=== PATIENT | female | born 1930 | race American Indian/Alaskan Native ===

== ENCOUNTER 2017-03-09 04:54 | Inpatient (IN) | payer MEDICARE ==
[2017-03-09 07:24] LABS: Calcium 8.8 mg/dL (8.4-10.2)
[2017-03-09 07:27] LABS: Basophils % (Auto) 0.5 % (0.0-1.8); Eosinophils # (Auto) 0.1 K/mm3 (0.0-0.4); Eosinophils % (Auto) 1.3 % (0.0-4.3); Hematocrit 42.3 % (30.3-42.9); Hemoglobin 13.7 gm/dl (10.1-14.3); Lymphocytes # (Auto) 1.2 K/mm3 (1.2-5.4); Lymphocytes % (Auto) 20.9 % (13.4-35.0); Mean Corpuscular HGB Conc 33 % (30-34); Mean Corpuscular Hemoglobin 30 pg (28-32); Mean Corpuscular Volume 93 fl (79-97); Monocytes # (Auto) 0.5 K/mm3 (0.0-0.8); Monocytes % (Auto) 8.7 % (0.0-7.3); Platelet Count 153 K/mm3 (140-440); Red Blood Count 4.53 M/mm3 (3.65-5.03); Red Cell Distribution Width 17.3 % (13.2-15.2)
--- NOTE | 2017-03-09 08:19 | Emergency Department Report ---
ED General Adult HPI - General Chief complaint: Hypoglycemia Stated complaint: LOW BLOOD SUGAR Time Seen by Provider: 03/09/17 08:18 Source: family, EMS Mode of arrival: Stretcher Limitations: Physical Limitation - History of Present Illness Initial comments: The patient was found to be hypoglycemic. She just moved here from [place]. She has noticed 2 days of dialysis. She was pending transfer to Dr. Hinojosa/Sharad drake but her outpatient transfer did not expedite. She presents here requesting dialysis. Apparently she is on glyburide only for her diabetes. Patient and family denies any recent fever or chills. She is otherwise asymptomatic except for exertional dyspnea -: days(s) Severity scale (0 -10): 0 Associated Symptoms: shortness of breath Treatments Prior to Arrival: none - Related Data Home Medications Medication Instructions Recorded Confirmed Last Taken Calcium Acetate 667 mg PO TID 03/09/17 03/09/17 03/09/17 Cinacalcet [Sensipar] 30 mg PO QDAY 03/09/17 03/09/17 03/08/17 Clopidogrel [Plavix] 75 mg PO QDAY 03/09/17 03/09/17 03/08/17 Donepezil [Aricept] 5 mg PO QDAY 03/09/17 03/09/17 03/08/17 Ergocalciferol [Vitamin D2] 1 cap PO QWEEK 03/09/17 03/09/17 Unknown Furosemide [Lasix TAB] 40 mg PO QDAY 03/09/17 03/09/17 03/08/17 Glimepiride [Amaryl] 1 mg PO QAM 03/09/17 03/09/17 03/08/17 Labetalol [Normodyne] 200 mg PO BID 03/09/17 03/09/17 03/08/17 Lisinopril [Zestril TAB] 40 mg PO BID 03/09/17 03/09/17 03/08/17 Megestrol [Megace] 80 mg PO BID 03/09/17 03/09/17 03/08/17 Minoxidil [Loniten] 10 mg PO QDAY 03/09/17 03/09/17 03/08/17 NIFEdipine XL [Procardia Xl] 60 mg PO Q12HR 03/09/17 03/09/17 03/08/17 Simvastatin [Zocor TAB] 40 mg PO QHS 03/09/17 03/09/17 03/08/17 Vit B Comp No.3/Folic/C/Biotin 1 each PO DAILY 03/09/17 03/09/17 03/08/17 [Tia-Indigo Rx Tablet] cloNIDine [Catapres] 0.2 mg PO TID 03/09/17 03/09/17 1 Day Ago ~03/08/17 hydrALAZINE [Apresoline] 25 mg PO Q8HR 03/09/17 03/09/17 03/08/17 Allergies Allergy/AdvReac Type Severity Reaction Status Date / Time No Known Allergies Allergy Unverified 03/09/17 05:47 ED Review of Systems ROS: Stated complaint: LOW BLOOD SUGAR Other details as noted in HPI Constitutional: denies: chills, fever Eyes: denies: eye pain, eye discharge, vision change ENT: denies: ear pain, throat pain Respiratory: shortness of breath. denies: cough, wheezing Cardiovascular: denies: chest pain, palpitations Endocrine: no symptoms reported Gastrointestinal: denies: abdominal pain, nausea, diarrhea Genitourinary: denies: urgency, dysuria, discharge Musculoskeletal: denies: back pain, joint swelling, arthralgia Skin: denies: rash, lesions Neurological: denies: headache, weakness, paresthesias Psychiatric: denies: anxiety, depression Hematological/Lymphatic: denies: easy bleeding, easy bruising ED Past Medical Hx - Past Medical History Previous Medical History?: Yes Hx Hypertension: Yes Hx Diabetes: Yes Hx Renal Disease: Yes (dialysis M, W, F) - Social History Smoking Status: Never Smoker Substance Use Type: None - Medications Home Medications: Home Medications Medication Instructions Recorded Confirmed Last Taken Type Calcium Acetate 667 mg PO TID 03/09/17 03/09/17 03/09/17 History Cinacalcet [Sensipar] 30 mg PO QDAY 03/09/17 03/09/17 03/08/17 History Clopidogrel [Plavix] 75 mg PO QDAY 03/09/17 03/09/17 03/08/17 History Donepezil [Aricept] 5 mg PO QDAY 03/09/17 03/09/17 03/08/17 History Ergocalciferol [Vitamin D2] 1 cap PO QWEEK 03/09/17 03/09/17 Unknown History Furosemide [Lasix TAB] 40 mg PO QDAY 03/09/17 03/09/17 03/08/17 History Glimepiride [Amaryl] 1 mg PO QAM 03/09/17 03/09/17 03/08/17 History Labetalol [Normodyne] 200 mg PO BID 03/09/17 03/09/17 03/08/17 History Lisinopril [Zestril TAB] 40 mg PO BID 03/09/17 03/09/17 03/08/17 History Megestrol [Megace] 80 mg PO BID 03/09/17 03/09/17 03/08/17 History Minoxidil [Loniten] 10 mg PO QDAY 03/09/17 03/09/17 03/08/17 History NIFEdipine XL [Procardia Xl] 60 mg PO Q12HR 03/09/17 03/09/17 03/08/17 History Simvastatin [Zocor TAB] 40 mg PO QHS 03/09/17 03/09/17 03/08/17 History Vit B Comp No.3/Folic/C/Biotin 1 each PO DAILY 03/09/17 03/09/17 03/08/17 History [Tia-Indigo Rx Tablet] cloNIDine [Catapres] 0.2 mg PO TID 03/09/17 03/09/17 1 Day Ago History ~03/08/17 hydrALAZINE [Apresoline] 25 mg PO Q8HR 03/09/17 03/09/17 03/08/17 History ED Physical Exam - General Limitations: Physical Limitation General appearance: alert, in no apparent distress - Head Head exam: Present: atraumatic, normocephalic - Eye Eye exam: Present: normal appearance. Absent: scleral icterus - ENT ENT exam: Present: mucous membranes moist - Neck Neck exam: Present: normal inspection - Respiratory Respiratory exam: Present: normal lung sounds bilaterally. Absent: respiratory distress - Cardiovascular Cardiovascular Exam: Present: regular rate, normal rhythm. Absent: systolic murmur, diastolic murmur, rubs, gallop - GI/Abdominal GI/Abdominal exam: Present: soft, normal bowel sounds. Absent: distended, tenderness, guarding, rebound - Extremities Exam Extremities exam: Present: normal inspection - Back Exam Back exam: Present: normal inspection - Neurological Exam Neurological exam: Present: alert, oriented X3, other (no acute focal deficit) - Psychiatric Psychiatric exam: Present: normal affect, normal mood, flat affect - Skin Skin exam: Present: warm, dry, intact, normal color. Absent: rash ED Course Vital Signs 03/09/17 05:34 Temperature 97.5 F L Pulse Rate 51 L Respiratory 14 Rate Blood Pressure 172/52 Blood Pressure 172/52 [Right] O2 Sat by Pulse 98 Oximetry ED Medical Decision Making - Lab Data Result diagrams: 03/09/17 05:40 03/09/17 05:40 Laboratory Results - last 24 hr 03/09/17 03/09/17 03/09/17 05:40 05:40 06:06 WBC 5.7 RBC 4.53 Hgb 13.7 Hct 42.3 MCV 93 MCH 30 MCHC 33 RDW 17.3 H Plt Count 153 Lymph % (Auto) 20.9 Andrew % (Auto) 8.7 H Eos % (Auto) 1.3 Baso % (Auto) 0.5 Lymph # 1.2 Andrew # 0.5 Eos # 0.1 Baso # 0.0 Seg Neutrophils % 68.6 Seg Neutrophils # 3.9 Sodium 136 L Potassium 4.6 Chloride 91.6 L Carbon Dioxide 24 Anion Gap 25 BUN 90 H Creatinine 7.2 H Estimated GFR 7 BUN/Creatinine Ratio 13 Glucose 127 H POC Glucose 120 H Calcium 8.8 Critical care attestation.: If time is entered above; I have spent that time in minutes in the direct care of this critically ill patient, excluding procedure time. ED Disposition Clinical Impression: End-stage renal disease needing dialysis Hypertension Qualifiers: Hypertension type: unspecified Qualified Code(s): I10 - Essential (primary) hypertension Disposition: OP ADMIT IP TO THIS HOSP Is pt being admited?: Yes Does the pt Need Aspirin: Yes Condition: Stable Time of Disposition: 12:48
--- NOTE | 2017-03-09 09:29 | XRay Report ---
AP CHEST: HISTORY: Difficulty in breathing AP view of the chest demonstrates a normal mediastinal and cardiac contour with clear lungs and normal bony and soft tissue structures. IMPRESSION: Unremarkable AP chest.
[2017-03-09] MEDS ORDERED: TYLENOL PO PRN (10:27)
[2017-03-09] MEDS ORDERED: DULCOLAX PR PRN (10:27)
[2017-03-09] MEDS ORDERED: APRESOLINE IV PRN (11:36)
[2017-03-09 11:37] LABS: Bacteria,Urine 3+ /HPF (Negative); Bilirubin,Urine NEG (Negative); Blood,Urine NEG (Negative); Color,Urine Yellow (Yellow); Mucus,Urine FEW /HPF; Nitrite,Urine NEG (Negative); Urobilinogen,Urine < 2.0 mg/dL (<2.0)
[2017-03-09] MEDS ORDERED: D50W (25GM) Syringe IV PRN (11:37)
[2017-03-09] MEDS: APRESOLINE PO SCH (13:34)
[2017-03-09] MEDS: CATAPRES PO SCH (13:35)
[2017-03-09] MEDS: LASIX PO SCH ×2 (13:35→17:11)
[2017-03-09] MEDS ORDERED: CATAPRES ONE (13:44)
[2017-03-09] MEDS ORDERED: APRESOLINE ONE ×2 (13:44→13:47)
[2017-03-09] MEDS ORDERED: LASIX ONE (13:45)
[2017-03-09] MEDS ORDERED: NACL 0.9% 100 ML IV PRN (14:07)
--- NOTE | 2017-03-09 15:06 | History and Physical Report ---
History of Present Illness Date of admission: 03/09/17 10:27 Chief complaint: I have missed dialysis History of present illness: History was mostly significant from her granddaughter. The patient was competent enough to give history also. She is a 86-year-old woman with past medical history of hypertension, end-stage renal disease on hemodialysis, diabetes on oral medications who presents because she could not get into dialysis. She has previously residing in [place], she was living with her son. Her son has his own medical problems and is also on dialysis. He was unable to take care of her. Adults protective services was called and then the decision was made for her to relocate to [place] to live with her granddaughter who will now be taking care of her. She has missed 2 dialysis sessions, because she has not been able to set up outpatient dialysis in this state. She denies chest pain she denies shortness of breath. She does have some pain in her sacrum. Her granddaughter states that she ambulates with a walker but for the most part she likes to lay in bed she gets up from 1 couch to get to the other couch . There are no changes in her mental status., No fever no chills. Also c/o low glucose, uses glimepiride, not on any insulin at home Past History Past Medical History: diabetes, dialysis, ESRD, hypertension Past Surgical History: Other (av graft) Social history: lives with family. denies: smoking, alcohol abuse, prescription drug abuse, IV drug use Family history: diabetes, hypertension, other (esrd) Medications and Allergies Allergies Allergy/AdvReac Type Severity Reaction Status Date / Time No Known Allergies Allergy Unverified 03/09/17 05:47 Home Medications Medication Instructions Recorded Confirmed Last Taken Type Calcium Acetate 667 mg PO TID 03/09/17 03/09/17 03/09/17 History Cinacalcet [Sensipar] 30 mg PO QDAY 03/09/17 03/09/17 03/08/17 History Clopidogrel [Plavix] 75 mg PO QDAY 03/09/17 03/09/17 03/08/17 History Donepezil [Aricept] 5 mg PO QDAY 03/09/17 03/09/17 03/08/17 History Ergocalciferol [Vitamin D2] 1 cap PO QWEEK 03/09/17 03/09/17 Unknown History Furosemide [Lasix TAB] 40 mg PO QDAY 03/09/17 03/09/17 03/08/17 History Glimepiride [Amaryl] 1 mg PO QAM 03/09/17 03/09/17 03/08/17 History Labetalol [Normodyne] 200 mg PO BID 03/09/17 03/09/17 03/08/17 History Lisinopril [Zestril TAB] 40 mg PO BID 03/09/17 03/09/17 03/08/17 History Megestrol [Megace] 80 mg PO BID 03/09/17 03/09/17 03/08/17 History Minoxidil [Loniten] 10 mg PO QDAY 03/09/17 03/09/17 03/08/17 History NIFEdipine XL [Procardia Xl] 60 mg PO Q12HR 03/09/17 03/09/17 03/08/17 History Simvastatin [Zocor TAB] 40 mg PO QHS 03/09/17 03/09/17 03/08/17 History Vit B Comp No.3/Folic/C/Biotin 1 each PO DAILY 03/09/17 03/09/17 03/08/17 History [Tia-Indigo Rx Tablet] cloNIDine [Catapres] 0.2 mg PO TID 03/09/17 03/09/17 1 Day Ago History ~03/08/17 hydrALAZINE [Apresoline] 25 mg PO Q8HR 03/09/17 03/09/17 03/08/17 History Active Meds: Active Medications Acetaminophen (Tylenol) 650 mg PO Q4H PRN PRN Reason: Pain MILD(1-3)/Fever >100.5/STEWART Aspirin (Baby Aspirin) 81 mg PO QDAY ONE Stop: 03/10/17 12:50 Bisacodyl (Dulcolax) 10 mg DC QDAY PRN PRN Reason: Constipation unrelieved by MOM Calcium Acetate (Phoslo) 667 mg PO TID STELLA Cinacalcet (Sensipar) 30 mg PO QDAY [facility] Clonidine HCl (Catapres) 0.2 mg PO TID [facility] Last Admin: 03/09/17 13:35 Dose: 0.2 mg Clopidogrel Bisulfate (Plavix) 75 mg PO QDAY [facility] Dextrose (D50w (25gm) Syringe) 50 ml IV PRN PRN PRN Reason: Hypoglycemia Donepezil HCl (Aricept) 5 mg PO QDAY [facility] Ergocalciferol (Vitamin D2) 50,000 unit PO Fr STE[facility] Furosemide (Lasix) 40 mg PO DAILY@0600 [facility] Last Admin: 03/09/17 13:35 Dose: 40 mg Heparin Sodium (Porcine) (Heparin) 5,000 unit SUB-Q Q12HR [facility] Hydralazine HCl (Apresoline) 25 mg PO Q8HR [facility] Last Admin: 03/09/17 13:34 Dose: 25 mg Hydralazine HCl (Apresoline) 10 mg IV Q4HR PRN PRN Reason: BP >160/100 Last Admin: 03/09/17 13:34 Dose: 10 mg Sodium Chloride (Nacl 0.9%) 100 mls @ 999 mls/hr IV BEN PRN PRN Reason: Hypotension Insulin Aspart (Novolog) 0 units SUB-Q ACHS [facility] PRN Reason: Protocol Lisinopril (Zestril) 40 mg PO BID [facility] Megestrol Acetate (Megace) 80 mg PO BID [facility] Multivit/Ca Carb/B Cmplx/FA/Prenat (Renal Caps) 1 cap PO QDAY [facility] Nifedipine (Procardia Xl) 60 mg PO Q12HR [facility] Pravastatin Sodium (Pravachol) 80 mg PO QHS [facility] Review of Systems All systems: negative (14 point review of systems is otherwise negative except as stated in HPI) Exam - Constitutional Vitals: Temp Pulse Resp BP Pulse Ox 97.6 F 64 14 228/80 98 03/09/17 05:34 03/09/17 13:35 03/09/17 05:34 03/09/17 13:35 03/09/17 05:34 General appearance: Present: no acute distress, well-nourished - EENT Eyes: Present: PERRL ENT: hearing intact, clear oral mucosa - Neck Neck: Present: supple, normal ROM - Respiratory Respiratory effort: normal Respiratory: bilateral: CTA - Cardiovascular Heart Sounds: Present: S1 & S2. Absent: rub, click - Extremities Extremities: pulses symmetrical, No edema Peripheral Pulses: within normal limits - Abdominal General gastrointestinal: Present: soft, non-tender, non-distended, normal bowel sounds Female genitourinary: Present: normal - Integumentary Integumentary: Present: clear, warm, dry (stage 1 sacral decub) - Musculoskeletal Musculoskeletal: gait normal, strength equal bilaterally - Psychiatric Psychiatric: appropriate mood/affect, intact judgment & insight - Neurologic Neurologic: CNII-XII intact, moves all extremities Results - Labs CBC & Chem 7: 03/09/17 05:40 03/09/17 05:40 Labs: Laboratory Last Values WBC 5.7 K/mm3 (4.5-11.0) 03/09/17 05:40 RBC 4.53 M/mm3 (3.65-5.03) 03/09/17 05:40 Hgb 13.7 gm/dl (10.1-14.3) 03/09/17 05:40 Hct 42.3 % (30.3-42.9) 03/09/17 05:40 MCV 93 fl (79-97) 03/09/17 05:40 MCH 30 pg (28-32) 03/09/17 05:40 MCHC 33 % (30-34) 03/09/17 05:40 RDW 17.3 % (13.2-15.2) H 03/09/17 05:40 Plt Count 153 K/mm3 (140-440) 03/09/17 05:40 Lymph % (Auto) 20.9 % (13.4-35.0) 03/09/17 05:40 [place] % (Auto) 8.7 % (0.0-7.3) H 03/09/17 05:40 Eos % (Auto) 1.3 % (0.0-4.3) 03/09/17 05:40 Baso % (Auto) 0.5 % (0.0-1.8) 03/09/17 05:40 Lymph # 1.2 K/mm3 (1.2-5.4) 03/09/17 05:40 [place] # 0.5 K/mm3 (0.0-0.8) 03/09/17 05:40 Eos # 0.1 K/mm3 (0.0-0.4) 03/09/17 05:40 Baso # 0.0 K/mm3 (0.0-0.1) 03/09/17 05:40 Seg Neutrophils % 68.6 % (40.0-70.0) 03/09/17 05:40 Seg Neutrophils # 3.9 K/mm3 (1.8-7.7) 03/09/17 05:40 Sodium 136 mmol/L (137-145) L 03/09/17 05:40 Potassium 4.6 mmol/L (3.6-5.0) 03/09/17 05:40 Chloride 91.6 mmol/L (98-107) L 03/09/17 05:40 Carbon Dioxide 24 mmol/L (22-30) 03/09/17 05:40 Anion Gap 25 mmol/L 03/09/17 05:40 BUN 90 mg/dL (7-17) H 03/09/17 05:40 Creatinine 7.2 mg/dL (0.7-1.2) H 03/09/17 05:40 Estimated GFR 7 ml/min 03/09/17 05:40 BUN/Creatinine Ratio 13 % 03/09/17 05:40 Glucose 127 mg/dL (65-100) H 03/09/17 05:40 POC Glucose 145 (70-105) H 03/09/17 11:51 Calcium 8.8 mg/dL (8.4-10.2) 03/09/17 05:40 Urine Color Yellow (Yellow) 03/09/17 10:40 Urine Turbidity Slightly-cloudy (Clear) 03/09/17 10:40 Urine pH 5.0 (5.0-7.0) 03/09/17 10:40 Ur Specific [place] 1.015 (1.003-1.030) 03/09/17 10:40 Urine Protein 100 mg/dl mg/dL (Negative) 03/09/17 10:40 Urine Glucose (UA) Neg mg/dL (Negative) 03/09/17 10:40 Urine Ketones Neg mg/dL (Negative) 03/09/17 10:40 Urine Blood Neg (Negative) 03/09/17 10:40 Urine Nitrite Neg (Negative) 03/09/17 10:40 Urine Bilirubin Neg (Negative) 03/09/17 10:40 Urine Urobilinogen < 2.0 mg/dL (<2.0) 03/09/17 10:40 Ur Leukocyte Esterase Neg (Negative) 03/09/17 10:40 Urine WBC (Auto) 1.0 /HPF (0.0-6.0) 03/09/17 10:40 Urine RBC (Auto) 3.0 /HPF (0.0-6.0) 03/09/17 10:40 U Epithel Cells (Auto) 1.0 /HPF (0-13.0) 03/09/17 10:40 Urine Bacteria (Auto) 3+ /HPF (Negative) 03/09/17 10:40 Urine Mucus Few /HPF 03/09/17 10:40 - Imaging and Cardiology Chest x-ray: image reviewed (no acute findings) Assessment and Plan Assessment and plan: 86-year-old woman who was admitted for hypoglycemia and having missed dialysis. Hypoglycemia in type II diabetic patient Hold glimepiride, sliding-scale insulin. End-stage renal disease on hemodialysis Hemodialysis per nephrology. Discussed the case management to obtain outpatient dialysis center anterior time Hypertensive urgency Resume home medications along with hydralazine IV as needed Stage I sacral decubitus, present on admission Wound care Patient will need bedside commode, shower chair and wheelchair for home. I will make all these prescriptions for the patient and have notified case management. dvt ppx heparin sq
[2017-03-09] MEDS: PHOSLO PO SCH (15:24)
[2017-03-09] MEDS: NOVOLOG SUB-Q SCH (17:09)
--- NOTE | 2017-03-09 18:28 | Consultation ---
History of Present Illness - Reason for Consult Consult date: 03/09/17 end stage renal disease Requesting physician: SILVIA ARTHUR - History of Present Illness 86-year-old lady with a history of Diabetes mellitus, hypertension, End-stage renal disease on hemodialysis for about 6 months. Patient just moved from [place] and was living with her Son who is also on Hemodialysis. Apparently Son Was unable to Care for Her As He is also on Dialysis. Adult Protective Services Was Called and they arranged for Patient to Come live with with her Granddaughter here in [place]. Patient ambulates with walker. Arrangements Were Being Made for Outpatient Dialysis but Unfortunately all the Documents were sent and so Patient Could Not Be Accepted at the Clinic to Start Dialysis Today. They thus came to the Hospital. She complains of Dyspnea on Exertion. Her Blood Sugar is also normal. Patient is on Glyburide. 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 denies: smoking (quit smoking more than 30 years ago), alcohol abuse, prescription drug abuse, IV drug use Family history: diabetes, hypertension, other (Son is on Dialysis. Mother had tuberculosis and also some of her siblings) Medications and Allergies Allergies Allergy/AdvReac Type Severity Reaction Status Date / Time No Known Allergies Allergy Unverified 03/09/17 05:47 Home Medications Medication Instructions Recorded Confirmed Last Taken Type Calcium Acetate 667 mg PO TID 03/09/17 03/09/17 03/09/17 History Cinacalcet [Sensipar] 30 mg PO QDAY 03/09/17 03/09/17 03/08/17 History Clopidogrel [Plavix] 75 mg PO QDAY 03/09/17 03/09/17 03/08/17 History Donepezil [Aricept] 5 mg PO QDAY 03/09/17 03/09/17 03/08/17 History Ergocalciferol [Vitamin D2] 1 cap PO QWEEK 03/09/17 03/09/17 Unknown History Furosemide [Lasix TAB] 40 mg PO QDAY 03/09/17 03/09/17 03/08/17 History Glimepiride [Amaryl] 1 mg PO QAM 03/09/17 03/09/17 03/08/17 History Labetalol [Normodyne] 200 mg PO BID 03/09/17 03/09/17 03/08/17 History Lisinopril [Zestril TAB] 40 mg PO BID 03/09/17 03/09/17 03/08/17 History Megestrol [Megace] 80 mg PO BID 03/09/17 03/09/17 03/08/17 History Minoxidil [Loniten] 10 mg PO QDAY 03/09/17 03/09/17 03/08/17 History NIFEdipine XL [Procardia Xl] 60 mg PO Q12HR 03/09/17 03/09/17 03/08/17 History Simvastatin [Zocor TAB] 40 mg PO QHS 03/09/17 03/09/17 03/08/17 History Vit B Comp No.3/Folic/C/Biotin 1 each PO DAILY 03/09/17 03/09/17 03/08/17 History [Tia-Indigo Rx Tablet] cloNIDine [Catapres] 0.2 mg PO TID 03/09/17 03/09/17 1 Day Ago History ~03/08/17 hydrALAZINE [Apresoline] 25 mg PO Q8HR 03/09/17 03/09/17 03/08/17 History Active Meds: Active Medications Acetaminophen (Tylenol) 650 mg PO Q4H PRN PRN Reason: Pain MILD(1-3)/Fever >100.5/STEWART Aspirin (Baby Aspirin) 81 mg PO QDAY ONE Stop: 03/10/17 12:50 Bisacodyl (Dulcolax) 10 mg ID QDAY PRN PRN Reason: Constipation unrelieved by MOM Calcium Acetate (Phoslo) 667 mg PO TID [facility] Last Admin: 03/09/17 15:24 Dose: Not Given Cinacalcet (Sensipar) 30 mg PO QDAY [facility] Clonidine HCl (Catapres) 0.2 mg PO TID [facility] Last Admin: 03/09/17 13:35 Dose: 0.2 mg Clopidogrel Bisulfate (Plavix) 75 mg PO QDAY [facility] Dextrose (D50w (25gm) Syringe) 50 ml IV PRN PRN PRN Reason: Hypoglycemia Donepezil HCl (Aricept) 5 mg PO QDAY [facility] Ergocalciferol (Vitamin D2) 50,000 unit PO Fr [facility] Furosemide (Lasix) 40 mg PO DAILY@0600 [facility] Last Admin: 03/09/17 17:11 Dose: Not Given Heparin Sodium (Porcine) (Heparin) 5,000 unit SUB-Q Q12HR [facility] Hydralazine HCl (Apresoline) 25 mg PO Q8HR [facility] Last Admin: 03/09/17 13:34 Dose: 25 mg Hydralazine HCl (Apresoline) 10 mg IV Q4HR PRN PRN Reason: BP >160/100 Last Admin: 03/09/17 13:34 Dose: 10 mg Sodium Chloride (Nacl 0.9%) 100 mls @ 999 mls/hr IV BEN PRN PRN Reason: Hypotension Insulin Aspart (Novolog) 0 units SUB-Q ACHS [facility] PRN Reason: Protocol Last Admin: 03/09/17 17:09 Dose: Not Given Lisinopril (Zestril) 40 mg PO BID [facility] Megestrol Acetate (Megace) 80 mg PO BID [facility] Multivit/Ca Carb/B Cmplx/FA/Prenat (Renal Caps) 1 cap PO QDAY [facility] Nifedipine (Procardia Xl) 60 mg PO Q12HR [facility] Pravastatin Sodium (Pravachol) 80 mg PO QHS [facility] Review of Systems All systems: negative (Constitutional: no fever or chills. No anorexia or weight loss. HEENT: No sore throat or sinus drainage no hearing or vision impairment . Cardiovascular: No chest pain, shortness of breath, palpitations, lower extremity swelling or dizziness. Respiratory: No cough, sputum, shortness of breath, hemoptysis or wheezing. Gastrointestinal: No nausea, vomiting, diarrhea, abdominal pain, hematemesis or melena. Genitourinary: No frequency urgency dysuria or hematuria. hematologic: No abnormal bleeding or bruising. Integumentary: no pruritus and also has a rash. Neurological: No headache no focal weakness or numbness, no syncope or seizures. Musculoskeletal : No joint pains no stiffness. Psychiatry: no anxiety or depression) Exam - Vital Signs Vital signs: Vital Signs Pulse Resp 53 L 13 03/09/17 05:26 03/09/17 05:26 - Physical Exam Narrative exam: Elderly -[place] female lying in bed in no acute distress HEENT: NCAT, right eye opaque, left corneal opacity pink oral mucous membrane Neck: Supple, no venous distention CVS: S1S2 RRR with no murmur, rub or gallop Chest: Clear to auscultation, diminished breath sounds Abdomen: Protuberant, soft, nontender, no organomegaly, bowel sounds are present Extremities: No edema, Skin with hyperpigmented patches and atrophy. Neuro: Awake, alert no focal deficits Results - Lab Results 03/09/17 05:40 03/09/17 05:40 Most recent lab results Calcium 8.8 mg/dL (8.4-10.2) 03/09/17 05:40 Assessment and Plan - Patient Problems (1) End-stage renal disease needing dialysis Current Visit: Yes Status: Acute Plan to address problem: Hemodialysis today and then on a Sunday schedule. We'll arrange placement at the outpatient clinic. Patient is already been set up at [facility]. We'll request for the remaining documents be sent (2) Hypertensive chronic kidney disease with stage 5 chronic kidney disease or end stage renal disease Current Visit: Yes Status: Acute Plan to address problem: Follow-up blood pressure on current medications (3) Type 2 diabetes mellitus with diabetic chronic kidney disease Current Visit: Yes Status: Acute Plan to address problem: Patient had a hypoglycemia and so glyburide is on hold. 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
[2017-03-09] MEDS ORDERED: NACL 0.9 (PRIMING MACHINE ONLY DIALYSIS) MC ONE (21:47)
[2017-03-09] MEDS ORDERED: NON-FORMULARY (Simvastatin 40 MG) PO SCH (22:00)
[2017-03-10] MEDS: PHOSLO PO SCH ×4 (00:09→20:00)
[2017-03-10] MEDS: MEGACE PO SCH ×3 (00:09→22:30)
[2017-03-10] MEDS: PRAVACHOL PO SCH ×2 (00:09→23:00)
[2017-03-10] MEDS: APRESOLINE PO SCH ×4 (00:10→22:30)
[2017-03-10] MEDS: PROCARDIA XL PO SCH ×3 (00:10→23:25)
[2017-03-10] MEDS: ZESTRIL PO SCH ×2 (00:10→09:32)
[2017-03-10] MEDS: CATAPRES PO SCH ×4 (00:10→20:00)
[2017-03-10] MEDS: HEPARIN SUB-Q SCH ×3 (00:15→23:00)
[2017-03-10] MEDS: NOVOLOG SUB-Q SCH ×5 (00:16→22:30)
[2017-03-10] MEDS: LASIX PO SCH (05:46)
[2017-03-10 06:13] LABS: Basophils % (Auto) 0.3 % (0.0-1.8); Eosinophils # (Auto) 0.1 K/mm3 (0.0-0.4); Eosinophils % (Auto) 0.8 % (0.0-4.3); Hematocrit 35.9 % (30.3-42.9); Hemoglobin 11.8 gm/dl (10.1-14.3); Lymphocytes # (Auto) 0.8 K/mm3 (1.2-5.4); Lymphocytes % (Auto) 11.1 % (13.4-35.0); Mean Corpuscular HGB Conc 33 % (30-34); Mean Corpuscular Hemoglobin 30 pg (28-32); Mean Corpuscular Volume 93 fl (79-97); Monocytes # (Auto) 0.7 K/mm3 (0.0-0.8); Monocytes % (Auto) 9.5 % (0.0-7.3); Platelet Count 121 K/mm3 (140-440); Red Blood Count 3.87 M/mm3 (3.65-5.03); Red Cell Distribution Width 17.6 % (13.2-15.2)
[2017-03-10 06:37] LABS: Calcium 8.5 mg/dL (8.4-10.2)
[2017-03-10] MEDS: PLAVIX PO SCH (09:31)
[2017-03-10] MEDS: SENSIPAR PO SCH (09:31)
[2017-03-10] MEDS: Renal Caps PO SCH (09:31)
[2017-03-10] MEDS: ARICEPT PO SCH (09:32)
[2017-03-10] MEDS ORDERED: NON-FORMULARY (Vit B Comp No.3/Folic/C/Biotin [Rena-Vite Rx Tablet] 1 EACH) PO SCH (10:00)
--- NOTE | 2017-03-10 10:26 | Progress Note ---
Assessment and Plan Assessment and plan: 86-year-old woman who was admitted for hypoglycemia and having missed dialysis. Hypoglycemia in type II diabetic patient Hold glimepiride, sliding-scale insulin. End-stage renal disease on hemodialysis Hemodialysis per nephrology. Discussed the case management to obtain outpatient dialysis center chair time Hypertensive urgency change from lisinopril to diovan, should improve after HD today Stage I sacral decubitus, present on admission Wound care Patient will need bedside commode, shower chair and wheelchair for home. I have all these prescriptions for the patient and have notified case management. dvt ppx heparin sq History Interval history: No chest pain, no shortness of breath No fever no chills No nausea no vomiting no diarrhea No focal weakness Hospitalist Physical - Physical exam Narrative exam: General appearance: Present: no acute distress, well-nourished - EENT Eyes: Present: PERRL ENT: hearing intact, clear oral mucosa - Neck Neck: Present: supple, normal ROM - Respiratory Respiratory effort: normal Respiratory: bilateral: CTA - Cardiovascular Heart Sounds: Present: S1 & S2. Absent: rub, click - Extremities Extremities: pulses symmetrical, No edema Peripheral Pulses: within normal limits - Abdominal General gastrointestinal: Present: soft, non-tender, non-distended, normal bowel sounds Female genitourinary: Present: normal - Integumentary Integumentary: Present: clear, warm, dry (stage 1 sacral decub) - Musculoskeletal Musculoskeletal: gait normal, strength equal bilaterally - Psychiatric Psychiatric: appropriate mood/affect, intact judgment & insight - Neurologic Neurologic: CNII-XII intact, moves all extremities - Constitutional Vitals: Temp Pulse Resp BP Pulse Ox 98.4 F 59 L 20 221/45 100 03/10/17 07:25 03/10/17 05:44 03/10/17 07:25 03/10/17 09:31 03/10/17 05:44 General appearance: Present: no acute distress, well-nourished Results - Labs CBC & Chem 7: 03/10/17 03:45 03/10/17 03:45 Labs: Laboratory Last Values WBC 7.0 K/mm3 (4.5-11.0) 03/10/17 03:45 RBC 3.87 M/mm3 (3.65-5.03) 03/10/17 03:45 Hgb 11.8 gm/dl (10.1-14.3) 03/10/17 03:45 Hct 35.9 % (30.3-42.9) D 03/10/17 03:45 MCV 93 fl (79-97) 03/10/17 03:45 MCH 30 pg (28-32) 03/10/17 03:45 MCHC 33 % (30-34) 03/10/17 03:45 RDW 17.6 % (13.2-15.2) H 03/10/17 03:45 Plt Count 121 K/mm3 (140-440) L 03/10/17 03:45 Lymph % (Auto) 11.1 % (13.4-35.0) L 03/10/17 03:45 [place] % (Auto) 9.5 % (0.0-7.3) H 03/10/17 03:45 Eos % (Auto) 0.8 % (0.0-4.3) 03/10/17 03:45 Baso % (Auto) 0.3 % (0.0-1.8) 03/10/17 03:45 Lymph # 0.8 K/mm3 (1.2-5.4) L 03/10/17 03:45 [place] # 0.7 K/mm3 (0.0-0.8) 03/10/17 03:45 Eos # 0.1 K/mm3 (0.0-0.4) 03/10/17 03:45 Baso # 0.0 K/mm3 (0.0-0.1) 03/10/17 03:45 Seg Neutrophils % 78.3 % (40.0-70.0) H 03/10/17 03:45 Seg Neutrophils # 5.5 K/mm3 (1.8-7.7) 03/10/17 03:45 Sodium 138 mmol/L (137-145) 03/10/17 03:45 Potassium 4.7 mmol/L (3.6-5.0) 03/10/17 03:45 Chloride 94.1 mmol/L (98-107) L 03/10/17 03:45 Carbon Dioxide 24 mmol/L (22-30) 03/10/17 03:45 Anion Gap 25 mmol/L 03/10/17 03:45 BUN 43 mg/dL (7-17) H 03/10/17 03:45 Creatinine 4.7 mg/dL (0.7-1.2) H 03/10/17 03:45 Estimated GFR 11 ml/min 03/10/17 03:45 BUN/Creatinine Ratio 9 % 03/10/17 03:45 Glucose 172 mg/dL (65-100) H 03/10/17 03:45 POC Glucose 207 (70-105) H 03/10/17 07:26 Calcium 8.5 mg/dL (8.4-10.2) 03/10/17 03:45 Urine Color Yellow (Yellow) 03/09/17 10:40 Urine Turbidity Slightly-cloudy (Clear) 03/09/17 10:40 Urine pH 5.0 (5.0-7.0) 03/09/17 10:40 Ur Specific [place] 1.015 (1.003-1.030) 03/09/17 10:40 Urine Protein 100 mg/dl mg/dL (Negative) 03/09/17 10:40 Urine Glucose (UA) Neg mg/dL (Negative) 03/09/17 10:40 Urine Ketones Neg mg/dL (Negative) 03/09/17 10:40 Urine Blood Neg (Negative) 03/09/17 10:40 Urine Nitrite Neg (Negative) 03/09/17 10:40 Urine Bilirubin Neg (Negative) 03/09/17 10:40 Urine Urobilinogen < 2.0 mg/dL (<2.0) 03/09/17 10:40 Ur Leukocyte Esterase Neg (Negative) 03/09/17 10:40 Urine WBC (Auto) 1.0 /HPF (0.0-6.0) 03/09/17 10:40 Urine RBC (Auto) 3.0 /HPF (0.0-6.0) 03/09/17 10:40 U Epithel Cells (Auto) 1.0 /HPF (0-13.0) 03/09/17 10:40 Urine Bacteria (Auto) 3+ /HPF (Negative) 03/09/17 10:40 Urine Mucus Few /HPF 03/09/17 10:40
[2017-03-10] MEDS ORDERED: ZOFRAN IV PRN (11:53)
[2017-03-10] MEDS ORDERED: NACL 0.9% 100 ML IV PRN (12:18)
--- NOTE | 2017-03-10 12:23 | Progress Note ---
Assessment and Plan - Patient Problems (1) End-stage renal disease needing dialysis Current Visit: Yes Status: Acute Plan to address problem: Hemodialysis today and then on a Sunday, and Sunday schedule. We' ll confirm placement at the outpatient clinic to start on Sunday next week. Patient is already been set up at [facility]. We'll dialyze for 2 hours today since patient only received 2 dialysis treatments this week. Granddaughter confirms that she only had dialysis on Sunday. Did not dialyze on Sunday as patient had stated when I saw her yesterday (2) Hypertensive chronic kidney disease with stage 5 chronic kidney disease or end stage renal disease Current Visit: Yes Status: Acute Plan to address problem: Will restart labetalol 200 mg twice daily. Follow-up blood pressure on adjusted medications (3) Type 2 diabetes mellitus with diabetic chronic kidney disease Current Visit: Yes Status: Acute Plan to address problem: Patient had a hypoglycemia and so glyburide is on hold. 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 Interval history: Patient seen lying in bed. Daughter at bedside. She has no complaints. Daughter has the medications and I reviewed them. Patient was getting labetalol at home and it has not been ordered here Objective - Exam Narrative Exam: Elderly -Croatian female lying in bed in no acute distress HEENT: NCAT, right eye opaque, left corneal opacity pink oral mucous membrane Neck: Supple, no venous distention CVS: S1S2 RRR with no murmur, rub or gallop Chest: Clear to auscultation, diminished breath sounds Abdomen: Protuberant, soft, nontender, no organomegaly, bowel sounds are present Extremities: No edema, Skin with hyperpigmented patches and atrophy. Neuro: Awake, alert no focal deficits - Vital Signs Vital signs: Vital Signs - 12hr 03/10/17 03/10/17 03/10/17 05:44 07:25 09:31 Temperature 98.9 F 98.4 F Pulse Rate 59 L Respiratory 18 20 Rate Blood Pressure 235/56 221/45 221/45 O2 Sat by Pulse 100 Oximetry - Lab 03/10/17 03:45 03/10/17 03:45 Most recent lab results Calcium 8.5 mg/dL (8.4-10.2) 03/10/17 03:45
[2017-03-10] MEDS ORDERED: BABY ASPIRIN PO ONE (12:49)
[2017-03-10] MEDS: DIOVAN PO SCH (14:35)
[2017-03-10] MEDS: NORMODYNE PO SCH ×2 (14:39→22:30)
[2017-03-10] MEDS ORDERED: NACL 0.9 (PRIMING MACHINE ONLY DIALYSIS) MC ONE (20:11)
[2017-03-11] MEDS: APRESOLINE PO SCH ×2 (06:09→13:43)
[2017-03-11] MEDS: LASIX PO SCH (06:10)
--- NOTE | 2017-03-11 07:32 | Progress Note ---
Assessment and Plan Assessment and plan: 86-year-old woman who was admitted for hypoglycemia and having missed dialysis. Hypoglycemia in type II diabetic patient Hold glimepiride, sliding-scale insulin. End-stage renal disease on hemodialysis Hemodialysis per nephrology. Discussed the case management to obtain outpatient dialysis center chair time Hypertensive urgency change from lisinopril to diovan, should improve after HD today Stage I sacral decubitus, present on admission Wound care Patient will need bedside commode, shower chair and wheelchair for home. I have all these prescriptions for the patient and have notified case management. dvt ppx heparin sq History Interval history: No chest pain, no shortness of breath No fever no chills No nausea no vomiting no diarrhea No focal weakness Hospitalist Physical - Physical exam Narrative exam: General appearance: Present: no acute distress, well-nourished - EENT Eyes: Present: PERRL ENT: hearing intact, clear oral mucosa - Neck Neck: Present: supple, normal ROM - Respiratory Respiratory effort: normal Respiratory: bilateral: CTA - Cardiovascular Heart Sounds: Present: S1 & S2. Absent: rub, click - Extremities Extremities: pulses symmetrical, No edema Peripheral Pulses: within normal limits - Abdominal General gastrointestinal: Present: soft, non-tender, non-distended, normal bowel sounds Female genitourinary: Present: normal - Integumentary Integumentary: Present: clear, warm, dry (stage 1 sacral decub) - Musculoskeletal Musculoskeletal: gait normal, strength equal bilaterally - Psychiatric Psychiatric: appropriate mood/affect, intact judgment & insight - Neurologic Neurologic: CNII-XII intact, moves all extremities - Constitutional Vitals: Temp Pulse Resp BP Pulse Ox 98.5 F 56 L 18 164/43 100 03/11/17 05:56 03/10/17 22:30 03/11/17 05:56 03/11/17 05:56 03/10/17 05:44 General appearance: Present: no acute distress, well-nourished Results - Labs CBC & Chem 7: 03/10/17 03:45 03/10/17 03:45 Labs: Laboratory Last Values WBC 7.0 K/mm3 (4.5-11.0) 03/10/17 03:45 RBC 3.87 M/mm3 (3.65-5.03) 03/10/17 03:45 Hgb 11.8 gm/dl (10.1-14.3) 03/10/17 03:45 Hct 35.9 % (30.3-42.9) D 03/10/17 03:45 MCV 93 fl (79-97) 03/10/17 03:45 MCH 30 pg (28-32) 03/10/17 03:45 MCHC 33 % (30-34) 03/10/17 03:45 RDW 17.6 % (13.2-15.2) H 03/10/17 03:45 Plt Count 121 K/mm3 (140-440) L 03/10/17 03:45 Lymph % (Auto) 11.1 % (13.4-35.0) L 03/10/17 03:45 [place] % (Auto) 9.5 % (0.0-7.3) H 03/10/17 03:45 Eos % (Auto) 0.8 % (0.0-4.3) 03/10/17 03:45 Baso % (Auto) 0.3 % (0.0-1.8) 03/10/17 03:45 Lymph # 0.8 K/mm3 (1.2-5.4) L 03/10/17 03:45 [place] # 0.7 K/mm3 (0.0-0.8) 03/10/17 03:45 Eos # 0.1 K/mm3 (0.0-0.4) 03/10/17 03:45 Baso # 0.0 K/mm3 (0.0-0.1) 03/10/17 03:45 Seg Neutrophils % 78.3 % (40.0-70.0) H 03/10/17 03:45 Seg Neutrophils # 5.5 K/mm3 (1.8-7.7) 03/10/17 03:45 Sodium 138 mmol/L (137-145) 03/10/17 03:45 Potassium 4.7 mmol/L (3.6-5.0) 03/10/17 03:45 Chloride 94.1 mmol/L (98-107) L 03/10/17 03:45 Carbon Dioxide 24 mmol/L (22-30) 03/10/17 03:45 Anion Gap 25 mmol/L 03/10/17 03:45 BUN 43 mg/dL (7-17) H 03/10/17 03:45 Creatinine 4.7 mg/dL (0.7-1.2) H 03/10/17 03:45 Estimated GFR 11 ml/min 03/10/17 03:45 BUN/Creatinine Ratio 9 % 03/10/17 03:45 Glucose 172 mg/dL (65-100) H 03/10/17 03:45 POC Glucose 89 (70-105) 03/10/17 21:57 Calcium 8.5 mg/dL (8.4-10.2) 03/10/17 03:45 Urine Color Yellow (Yellow) 03/09/17 10:40 Urine Turbidity Slightly-cloudy (Clear) 03/09/17 10:40 Urine pH 5.0 (5.0-7.0) 03/09/17 10:40 Ur Specific [place] 1.015 (1.003-1.030) 03/09/17 10:40 Urine Protein 100 mg/dl mg/dL (Negative) 03/09/17 10:40 Urine Glucose (UA) Neg mg/dL (Negative) 03/09/17 10:40 Urine Ketones Neg mg/dL (Negative) 03/09/17 10:40 Urine Blood Neg (Negative) 03/09/17 10:40 Urine Nitrite Neg (Negative) 03/09/17 10:40 Urine Bilirubin Neg (Negative) 03/09/17 10:40 Urine Urobilinogen < 2.0 mg/dL (<2.0) 03/09/17 10:40 Ur Leukocyte Esterase Neg (Negative) 03/09/17 10:40 Urine WBC (Auto) 1.0 /HPF (0.0-6.0) 03/09/17 10:40 Urine RBC (Auto) 3.0 /HPF (0.0-6.0) 03/09/17 10:40 U Epithel Cells (Auto) 1.0 /HPF (0-13.0) 03/09/17 10:40 Urine Bacteria (Auto) 3+ /HPF (Negative) 03/09/17 10:40 Urine Mucus Few /HPF 03/09/17 10:40
[2017-03-11] MEDS: NOVOLOG SUB-Q SCH ×5 (08:00→22:50)
[2017-03-11] MEDS: AMARYL PO SCH (09:00)
[2017-03-11] MEDS: MEGACE PO SCH ×2 (09:52→23:15)
[2017-03-11] MEDS: SENSIPAR PO SCH (09:52)
[2017-03-11] MEDS: PLAVIX PO SCH (09:52)
[2017-03-11] MEDS: PHOSLO PO SCH ×3 (09:53→23:31)
[2017-03-11] MEDS: ARICEPT PO SCH (09:53)
[2017-03-11] MEDS: Renal Caps PO SCH (09:53)
[2017-03-11] MEDS: DIOVAN PO SCH (09:53)
[2017-03-11] MEDS: HEPARIN SUB-Q SCH ×2 (09:54→23:32)
[2017-03-11] MEDS: CATAPRES PO SCH ×3 (09:54→23:31)
[2017-03-11] MEDS: PROCARDIA XL PO SCH ×2 (09:55→23:44)
[2017-03-11] MEDS ORDERED: NON-FORMULARY (Glimepiride [Amaryl] 1 MG) PO SCH (10:00)
[2017-03-11] MEDS ORDERED: APRESOLINE IV PRN (13:33)
[2017-03-11] MEDS: NORMODYNE PO SCH ×2 (13:48→23:30)
--- NOTE | 2017-03-11 14:54 | Progress Note ---
Assessment and Plan - Patient Problems (1) End-stage renal disease needing dialysis Current Visit: Yes Status: Acute Plan to address problem: Hemodialysis on a Sunday, and Sunday schedule. We'll confirm placement at the outpatient clinic to start on Sunday next week. Patient is already been set up at [facility]. Communicated with clinical social worker and she needs hospital records faxed over so she can start dialysis on Sunday. (2) Hypertensive chronic kidney disease with stage 5 chronic kidney disease or end stage renal disease Current Visit: Yes Status: Acute Plan to address problem: Blood pressure is still not controlled. We will increase the dose of hydralazine. Follow-up blood pressure on adjusted medications (3) Type 2 diabetes mellitus with diabetic chronic kidney disease Current Visit: Yes Status: Acute Plan to address problem: Patient had a hypoglycemia and so glyburide is on hold. 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 Interval history: Patient seen lying in bed. No family at bedside. She has no complaints. Denies chest pain, shortness of breath, nausea or vomiting Objective - Exam Narrative Exam: Elderly -Montenegrin female lying in bed in no acute distress HEENT: NCAT, right eye opaque, left corneal opacity pink oral mucous membrane Neck: Supple, no venous distention CVS: S1S2 RRR with no murmur, rub or gallop Chest: Clear to auscultation, diminished breath sounds Abdomen: Protuberant, soft, nontender, no organomegaly, bowel sounds are present Extremities: No edema, Skin with hyperpigmented patches and atrophy. Neuro: Awake, alert no focal deficits - Vital Signs Vital signs: Vital Signs - 12hr 03/11/17 03/11/17 03/11/17 05:56 08:00 09:53 Temperature 98.5 F 99.6 F Pulse Rate 71 Respiratory 18 20 Rate Blood Pressure 164/43 196/54 Blood Pressure 196/45 [Right] O2 Sat by Pulse 95 Oximetry 03/11/17 10:00 Temperature Pulse Rate Respiratory 16 Rate Blood Pressure Blood Pressure [Right] O2 Sat by Pulse Oximetry - Lab 03/10/17 03:45 03/10/17 03:45 Most recent lab results Calcium 8.5 mg/dL (8.4-10.2) 03/10/17 03:45
[2017-03-11] MEDS: PRAVACHOL PO SCH (23:28)
[2017-03-12] MEDS: APRESOLINE PO SCH ×2 (00:45→06:00)
[2017-03-12] MEDS: LASIX PO SCH (06:00)
[2017-03-12] MEDS: NOVOLOG SUB-Q SCH (07:30)
[2017-03-12 09:13] VITALS: BP 185/50
[2017-03-12] MEDS: SENSIPAR PO SCH (10:08)
[2017-03-12] MEDS: DIOVAN PO SCH (10:08)
[2017-03-12] MEDS: PLAVIX PO SCH (10:09)
[2017-03-12] MEDS: PHOSLO PO SCH (10:09)
[2017-03-12] MEDS: Renal Caps PO SCH (10:09)
[2017-03-12] MEDS: CATAPRES PO SCH (10:09)
[2017-03-12] MEDS: PROCARDIA XL PO SCH (10:09)
[2017-03-12] MEDS: NORMODYNE PO SCH (10:10)
[2017-03-12] MEDS: AMARYL PO SCH (10:10)
[2017-03-12] MEDS: ARICEPT PO SCH (10:10)
[2017-03-12] MEDS: HEPARIN SUB-Q SCH (10:11)
--- NOTE | 2017-03-12 13:28 | Discharge Summary ---
<ALFREDO HAWLEY - Last Filed: 03/13/17 08:59> Providers - Providers Date of Admission: 03/09/17 10:27 Date of discharge: 03/12/17 Attending physician: LEONARDO CHANG MD 03/09/17 09:26 Consult to Physician [CONS] Urgent Consulting Provider: SABRINA BEASLEY Reason For Exam: ESRD needs D Notified:: yes 03/09/17 15:11 Consult to Case Management [CONS] Routine Services Needed at Discharge: Home Health Services DME Equipment Notified:: MIGUEL MARTINEZ Comment:: needs wheelchair, shower chair and bedside commode Consult to Wound/ET Nurse [CONS] Routine Reason For Exam: wound eval 03/10/17 08:03 Physical Therapy Evaluation and Treat [CONS] Routine Comment: Reason For Exam: Weakness 03/10/17 10:23 Consult to Case Management [CONS] Routine Services Needed at Discharge: Other Notified:: MIGUEL MARTINEZ Comment:: outpatient HD 03/11/17 14:52 Consult to Case Management [CONS] Routine Services Needed at Discharge: Other Notified:: TOMSÁ Comment:: send records to [facility] Additional Physician Instructions: Send hospital records to [facility] so patient can start dialysis down Sunday at 10 AM. Can only start if records are received by tomorrow Primary care physician: YASMEEN CASTILLO Hospitalization Condition: Stable Pertinent studies: Chest x-ray was unremarkable Hospital course: 86-year-old woman with past medical history of hypertension, end-stage renal disease on hemodialysis, diabetes on oral medications who presents because she could not get into dialysis. She has previously residing in [place], she was living with her son. Her son has his own medical problems and is also on dialysis. He was unable to take care of her. Adults protective services was called and then the decision was made for her to relocate to [place] to live with her granddaughter who will now be taking care of her. She has missed 2 dialysis sessions, because she has not been able to set up outpatient dialysis in this state. She denies chest pain she denies shortness of breath. Patient was hemodialyzed 2 days after which she improved clinically. She resumed home medications and was discharged home to her granddaughter's care. Discharge diagnoses Hypoglycemia and type II diabetic patient End-stage renal disease on hemodialysis Hypertensive urgency Stage I sacral decubitus, present on admission Disposition: DC-01 TO HOME OR SELFCARE Core Measure Documentation - Palliative Care Palliative Care/ Comfort Measures: Not Applicable - Core Measures Any of the following diagnoses?: none Exam - Constitutional Vitals: Temp Pulse Resp BP Pulse Ox 99.4 F 68 18 185/50 100 03/12/17 07:27 03/12/17 10:08 03/12/17 07:27 03/12/17 10:08 03/12/17 07:27 General appearance: Present: no acute distress, well-nourished - EENT Eyes: Present: PERRL ENT: hearing intact, clear oral mucosa - Neck Neck: Present: supple, normal ROM - Respiratory Respiratory effort: normal Respiratory: bilateral: CTA - Cardiovascular Heart Sounds: Present: S1 & S2. Absent: rub, click - Extremities Extremities: pulses symmetrical, No edema Peripheral Pulses: within normal limits - Abdominal General gastrointestinal: Present: soft, non-tender, non-distended, normal bowel sounds Female genitourinary: Present: deferred - Rectal Rectal Exam: deferred - Integumentary Integumentary: Present: clear, warm, dry (stage I sacral decubitus ulcer) - Musculoskeletal Musculoskeletal: gait normal, strength equal bilaterally - Psychiatric Psychiatric: appropriate mood/affect, intact judgment & insight - Neurologic Neurologic: CNII-XII intact, moves all extremities - Allied Health Allied health notes reviewed: nursing Plan Activity: advance as tolerated, fall precautions, other (no strenuous activity until cleared by PCP) Weight Bearing Status: Weight Bear as Tolerated Diet: low fat, low cholesterol, low salt, diabetic Durable Medical Equipment Needed Upon Discharge: Wheelchair, Bedside Commode, other (shower chair) Follow up with: YASMEEN CASTILLO MD [Primary Care Provider] - 3-5 Days Prescriptions: Pravastatin [Pravachol] 80 mg PO QHS 30 Days tablet Calcium Acetate 667 mg PO TID 30 Days capsule Cinacalcet [Sensipar] 30 mg PO QDAY 30 Days tablet cloNIDine [Catapres] 0.2 mg PO TID 30 Days tablet Clopidogrel [Plavix] 75 mg PO QDAY 30 Days tablet Diphenoxylate/Atropine [Lomotil] 1 - 2 tab PO Q4H PRN #30 tablet PRN Reason: Diarrhea Donepezil [Aricept] 5 mg PO QDAY 30 Days tablet Ergocalciferol [Vitamin D2] 1 cap PO QWEEK #4 capsule Furosemide [Lasix TAB] 40 mg PO QDAY 30 Days tablet Glimepiride [Amaryl] 1 mg PO QDDIAB 30 Days tablet hydrALAZINE [Apresoline TAB] 25 mg PO Q8HR 30 Days tablet Labetalol [Normodyne TAB] 200 mg PO BID 30 Days tablet Loperamide [Imodium] 2 mg PO ONCE PRN #30 capsule PRN Reason: Diarrhea Megestrol [Megace] 80 mg PO BID 30 Days tablet NIFEdipine XL [Procardia Xl] 60 mg PO Q12HR 30 Days tablet Valsartan [Diovan] 320 mg PO QDAY 30 Days tablet Vit B Comp No.3/Folic/C/Biotin [Tia-Indigo Rx Tablet] 1 each PO DAILY 30 Days tablet Other Discharge Orders: Home Health Care (Amb) Location: Determined By Patient Bedside Commode Amb) Location: Determined By Patient Shower Chair (Amb) Location: Determined By Patient Wheelchair (Amb) Location: Determined By Patient <LEONARDO CHANG - Last Filed: 03/13/17 18:00> Providers - Providers Date of Admission: 03/09/17 10:27 Attending physician: LEONARDO CHANG MD 03/09/17 09:26 Consult to Physician [CONS] Urgent Consulting Provider: SABRINA BEASLEY Reason For Exam: ESRD needs D Notified:: yes 03/09/17 15:11 Consult to Case Management [CONS] Routine Services Needed at Discharge: Home Health Services DME Equipment Notified:: MIGUEL MARTINEZ Comment:: needs wheelchair, shower chair and bedside commode Consult to Wound/ET Nurse [CONS] Routine Reason For Exam: wound eval 03/10/17 08:03 Physical Therapy Evaluation and Treat [CONS] Routine Comment: Reason For Exam: Weakness 03/10/17 10:23 Consult to Case Management [CONS] Routine Services Needed at Discharge: Other Notified:: MIGUEL MARTINEZ Comment:: outpatient HD 03/11/17 14:52 Consult to Case Management [CONS] Routine Services Needed at Discharge: Other Notified:: TOMÁS Comment:: send records to [facility] Additional Physician Instructions: Send hospital records to [facility] so patient can start dialysis down Sunday at 10 AM. Can only start if records are received by tomorrow Primary care physician: YASMEEN CASTILLO Exam - Constitutional Vitals: Temp Pulse Resp BP Pulse Ox 99.4 F 68 18 185/50 100 03/12/17 07:27 03/12/17 10:08 03/12/17 07:27 03/12/17 10:08 03/12/17 07:27
--- NOTE | 2017-03-12 16:00 | Progress Note ---
Assessment and Plan - Patient Problems (1) End-stage renal disease needing dialysis Current Visit: Yes Status: Acute Plan to address problem: Hemodialysis on a Sunday, and Sunday schedule. We'll confirm placement at the outpatient clinic to start on Sunday next week. Patient is already been set up at [facility]. Communicated with clinical pharmacy manager and they have not received records yet. I asked her to call admitting to fax records as soon as possible. (2) Hypertensive chronic kidney disease with stage 5 chronic kidney disease or end stage renal disease Current Visit: Yes Status: Acute Plan to address problem: Blood pressure is still not controlled. We will increase the dose of hydralazine. Follow-up blood pressure on adjusted medications (3) Type 2 diabetes mellitus with diabetic chronic kidney disease Current Visit: Yes Status: Acute Plan to address problem: Patient had a hypoglycemia and so glyburide is on hold. 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 Interval history: Patient seen lying in bed. No family at bedside. She has no complaints. Denies chest pain, shortness of breath, nausea or vomiting Objective - Exam Narrative Exam: Elderly -Nauruan female lying in bed in no acute distress HEENT: NCAT, right eye opaque, left corneal opacity pink oral mucous membrane Neck: Supple, no venous distention CVS: S1S2 RRR with no murmur, rub or gallop Chest: Clear to auscultation, diminished breath sounds Abdomen: Protuberant, soft, nontender, no organomegaly, bowel sounds are present Extremities: No edema, Skin with hyperpigmented patches and atrophy. Neuro: Awake, alert no focal deficits - Vital Signs Vital signs: Vital Signs - 12hr 03/12/17 03/12/17 03/12/17 06:00 07:27 10:08 Temperature 99.4 F Pulse Rate 66 68 68 Respiratory 18 Rate Blood Pressure 185/50 185/50 O2 Sat by Pulse 100 Oximetry - Lab 03/10/17 03:45 03/10/17 03:45 Most recent lab results Calcium 8.5 mg/dL (8.4-10.2) 03/10/17 03:45
[2017-03-16] MEDS ORDERED: VITAMIN D2 PO SCH (10:00)
== END 2017-03-12 17:20 | disposition home health service (06) | DRG 682 ==
LOC: ED 04:54 → 3A 10:27 → 2B-ACE 14:50
PROVIDERS: ADMIT Internal Medicine; ATTEND Internal Medicine
PROC: 5A1D70Z Performance of Urinary Filtration, Intermittent, Less than 6 Hours Per Day (ICD-10-PCS; 2017-03-09)
PROC: 5A1D70Z Performance of Urinary Filtration, Intermittent, Less than 6 Hours Per Day (ICD-10-PCS; principal; 2017-03-10)
DX: I12.0 Hypertensive chronic kidney disease with stage 5 chronic kidney disease or end stage renal disease (principal); N18.6 End stage renal disease; I16.0 Hypertensive urgency; L89.151 Pressure ulcer of sacral region, stage 1; E11.649 Type 2 diabetes mellitus with hypoglycemia without coma; E21.3 Hyperparathyroidism, unspecified; E11.22 Type 2 diabetes mellitus with diabetic chronic kidney disease; Z83.3 Family history of diabetes mellitus; Z82.49 Family history of ischemic heart disease and other diseases of the circulatory system; Z79.899 Other long term (current) drug therapy
CPT/HCPCS: 36415; 71045; 80048; 81001; 82962; 85025; 87324; 96374; A9270-GY; G8978-GP; G8979-GP; J0360; J1644; J1815; J1940; J2405; J7030

== ENCOUNTER 2017-03-13 06:14 | Emergency (ER) | payer MEDICARE ==
--- NOTE | 2017-03-13 06:25 | Emergency Department Report ---
HPI - General Time Seen by Provider: 03/13/17 06:20 - HPI HPI: Room 20 The patient is an 86-year-old female presenting with a chief complaint cardiac arrest. Per EMS the patient's last normal time was approximately 02:00. Patient was found unresponsive and EMS was called. EMS states they arrived on scene at 05:34 to find the patient unresponsive and in V. fib. Patient was protocols were initiated and the patient was intubated with a Combitube. Upon arrival to the ED the patient was found to be in an idioventricular rhythm, Combitube was removed and the patient was intubated with an ET tube by myself and ACLS protocols continued. There was no return of spontaneous circulation Location: Cardiovascular system Duration: [See above] Quality: Cardiac arrest Severity: Severe Modifying factors: [see above] Context: [see above] Mode of transportation: [not driving] ED Past Medical Hx - Past Medical History Hx Hypertension: Yes Hx Diabetes: Yes Hx Renal Disease: Yes (dialysis M, W, F) - Social History Smoking Status: Unknown if ever smoked - Medications Home Medications: Home Medications Medication Instructions Recorded Confirmed Last Taken Type Labetalol [Normodyne TAB] 200 mg PO BID 03/09/17 03/09/17 03/08/17 History Calcium Acetate 667 mg PO TID 30 Days capsule 03/12/17 Unknown Rx Cinacalcet [Sensipar] 30 mg PO QDAY 30 Days tablet 03/12/17 Unknown Rx Clopidogrel [Plavix] 75 mg PO QDAY 30 Days tablet 03/12/17 Unknown Rx Diphenoxylate/Atropine [Lomotil] 1 - 2 tab PO Q4H PRN #30 tablet 03/12/17 Unknown Rx Donepezil [Aricept] 5 mg PO QDAY 30 Days tablet 03/12/17 Unknown Rx Ergocalciferol [Vitamin D2] 1 cap PO QWEEK #4 capsule 03/12/17 Unknown Rx Furosemide [Lasix TAB] 40 mg PO QDAY 30 Days tablet 03/12/17 Unknown Rx Glimepiride [Amaryl] 1 mg PO QDDIAB 30 Days tablet 03/12/17 Unknown Rx Labetalol [Normodyne TAB] 200 mg PO BID 30 Days tablet 03/12/17 Unknown Rx Loperamide [Imodium] 2 mg PO ONCE PRN #30 capsule 03/12/17 Unknown Rx Megestrol [Megace] 80 mg PO BID 30 Days tablet 03/12/17 Unknown Rx NIFEdipine XL [Procardia Xl] 60 mg PO Q12HR 30 Days tablet 03/12/17 Unknown Rx Pravastatin [Pravachol] 80 mg PO QHS 30 Days tablet 03/12/17 Unknown Rx Valsartan [Diovan] 320 mg PO QDAY 30 Days tablet 03/12/17 Unknown Rx Vit B Comp No.3/Folic/C/Biotin 1 each PO DAILY 30 Days tablet 03/12/17 Unknown Rx [Tia-Indigo Rx Tablet] cloNIDine [Catapres] 0.2 mg PO TID 30 Days tablet 03/12/17 Unknown Rx hydrALAZINE [Apresoline TAB] 25 mg PO Q8HR 30 Days tablet 03/12/17 Unknown Rx ED Review of Systems ROS: Stated complaint: CARDIAC ARREST Other details as noted in HPI Comment: Unobtainable due to pts medical conditions Physical Exam - Physical Exam Physical Exam: GENERAL: The patient is well-developed well-nourished elderly female lying on stretcher receiving compressions from EMS and being bagged via Combitube. [] HEENT: Normocephalic. Atraumatic. NECK: Trachea midline CHEST/LUNGS: No spontaneous respirations. Breath sounds bilaterally after intubation by myself HEART/CARDIOVASCULAR: No heart sounds. Agonal rhythm on monitor. Pulseless ABDOMEN: Abdomen is soft SKIN: There is no diaphoresis. NEURO: GCS 3T MUSCULOSKELETAL: There is no evidence of acute injury. - Intubation Time Out Performed: No Sedative: none Laryngoscope: Alf Size: 3 ET Tube Size: 7 Tube Secured Depth (cm): 21 Tube Secured Location: lips Tube Placement Confirmation: visualized tube passing t, equal breath sounds bilat, no breath sounds over epi Patient Tolerated Procedure: no complications Intubation Complications: none ED Medical Decision Making - Differential Diagnosis cardiac arrest Critical care attestation.: If time is entered above; I have spent that time in minutes in the direct care of this critically ill patient, excluding procedure time. ED Disposition Clinical Impression: Cardiac arrest Disposition: Z-[id number] HOSPICE- MED FAC Is pt being admited?: No Does the pt Need Aspirin: No Condition: Poor Time of Disposition: 06:20 (patient )
== END 2017-03-13 10:15 ==
LOC: ED 06:14
DX: I46.9 Cardiac arrest, cause unspecified (principal); E11.22 Type 2 diabetes mellitus with diabetic chronic kidney disease; I12.0 Hypertensive chronic kidney disease with stage 5 chronic kidney disease or end stage renal disease; N18.6 End stage renal disease; Z99.2 Dependence on renal dialysis
CPT/HCPCS: 92950